=== PATIENT | male | born 1970 | race Caucasian/White ===

== ENCOUNTER 2023-01-31 13:37 | Emergency (ER) | payer OTHER ==
[2023-01-31] MEDS ORDERED: Lidocaine 2% PF 5 ML VIAL ONE (14:07)
[2023-01-31] MEDS ORDERED: Meloxicam 7.5 MG TAB PO SCH (15:15)
== END 2023-01-31 16:11 | disposition home or self-care (01) ==
LOC: BURERS 13:37
DX: S61.215A Laceration without foreign body of left ring finger without damage to nail, initial encounter (principal); I10 Essential (primary) hypertension; W26.8XXA Contact with other sharp object(s), not elsewhere classified, initial encounter; Y93.E9 Activity, other interior property and clothing maintenance; Z79.899 Other long term (current) drug therapy
CPT/HCPCS: 12001; J2001